=== PATIENT | female | born 2000 | race Caucasian/White ===

== ENCOUNTER 2022-08-10 21:40 | Emergency (ER) | payer SELFPAY ==
[~2022-08-10] VITALS: Ht 162.6 cm; Wt 59.0 kg
[2022-08-10] MEDS ORDERED: SODIUM CHLORIDE 0.9% 1,000 ML IV ONE (23:30)
[2022-08-10] MEDS ORDERED: LORAZEPAM 2MG/ML CPJ IV ONE (23:30)
[2022-08-11 01:58] VITALS: BP 117/73
== END 2022-08-11 03:25 | disposition home or self-care (01) ==
LOC: ER 21:40
DX: F12.929 Cannabis use, unspecified with intoxication, unspecified (principal)
CPT/HCPCS: 36415; 71045; 84484; 93005; 96361; 96374; 99285; J2060; J7030